=== PATIENT | female | born 1950 | race Caucasian/White ===

== ENCOUNTER → 2020-01-05 | Outpatient (CLI) | payer MEDICARE | END | disposition home or self-care (01) | LOC: RAH 08:49 | PROVIDERS: ATTEND Urology | DX: N20.0 Calculus of kidney (principal) | CPT/HCPCS: 74018 ==

== ENCOUNTER 2020-01-27 15:34 | Observation (INO) | payer MEDICARE ==
[~2020-01-27] VITALS: Ht 167.6 cm; Wt 81.2 kg
[2020-01-27] MEDS ORDERED: MORPHINE SULFATE 4 MG/1ML SYG ONE (18:18)
[2020-01-27 20:59] LABS: BASOPHILS % (AUTO) 0.6 % (0.0-5.0); EOSINOPHILS % (AUTO) 1.2 % (0.0-8.0); HEMATOCRIT 38.6 % (36-48); LYMPHOCYTES % (AUTO) 29.5 % (21.0-51.0); MEAN CORPUSCULAR HEMOGLOBIN 29.4 pg (27.0-33.0); MEAN CORPUSCULAR HGB CONC 33.2 g/dL (32.0-36.0); MEAN CORPUSCULAR VOLUME 88.5 fL (79-99); MONOCYTES % (AUTO) 6.3 % (3.0-13.0); NEUTROPHILS % (AUTO) 61.9 % (40.0-77.0); PLATELET COUNT (AUTO) 267 K/uL (130-400); RED BLOOD CELL COUNT(AUTO) 4.36 MIL/uL (4.00-5.50); RED CELL DISTRIBUTION WIDTH 12.2 % (11.0-15.5); WHITE BLOOD COUNT (AUTO) 10.7 K/uL (4.8-10.8)
[2020-01-27 21:05] LABS: CREATININE 0.7 mg/dL (0.5-1.5); POTASSIUM 5.3 mmol/L (3.5-5.1)
[2020-01-27 21:08] LABS: INR 0.97 (0.85-1.15); PARTIAL THROMBOPLASTIN TIME 27.9 SEC (26.3-35.5); PROTHROMBIN TIME 10.5 SEC (9.6-11.6)
[2020-01-27 21:09] LABS: ALBUMIN 4.1 g/dL (3.5-5.0); BILIRUBIN,TOTAL 0.4 mg/dL (0.2-1.0); TOTAL PROTEIN, SERUM 7.8 g/dL (6.0-8.3)
[2020-01-27] MEDS ORDERED: MORPHINE SULFATE 2 MG/ML 1ML SYG ONE (21:46)
[2020-01-27] MEDS ORDERED: ONDANSETRON HCL 4 MG/2 ML VIAL ONE (21:46)
[2020-01-27] MEDS ORDERED: HYDROCODONE/ACETAMINOPHEN 5/325 MG TAB ONE (21:46)
[2020-01-27 22:20] VITALS: BP 107/63
[2020-01-27] MEDS ORDERED: ACETAMINOPHEN 325 MG TAB PO PRN (23:30)
[2020-01-27] MEDS ORDERED: HYDROCODONE/ACETAMINOPHEN 5/325 MG TAB PO PRN (23:30)
[2020-01-27] MEDS ORDERED: SODIUM CHLORIDE 0.9% 1000ML 1,000 ML IV SCH (23:45)
[2020-01-27] MEDS ORDERED: MORPHINE SULFATE 2 MG/ML 1ML SYG IVP PRN (23:45)
[2020-01-27] MEDS ORDERED: ONDANSETRON HCL 4 MG/2 ML VIAL IVP PRN (23:45)
[2020-01-28 04:00] VITALS: BP 97/55
[2020-01-28 05:04] LABS: HEMATOCRIT 36.6 % (36-48); MEAN CORPUSCULAR HEMOGLOBIN 29.3 pg (27.0-33.0); MEAN CORPUSCULAR HGB CONC 32.5 g/dL (32.0-36.0); MEAN CORPUSCULAR VOLUME 90.1 fL (79-99); RED BLOOD CELL COUNT(AUTO) 4.06 MIL/uL (4.00-5.50); RED CELL DISTRIBUTION WIDTH 12.2 % (11.0-15.5); WHITE BLOOD COUNT (AUTO) 9.2 K/uL (4.8-10.8)
[2020-01-28 05:18] LABS: INR 0.99 (0.85-1.15); PARTIAL THROMBOPLASTIN TIME 26.3 SEC (26.3-35.5); PROTHROMBIN TIME 10.7 SEC (9.6-11.6)
[2020-01-28 05:21] LABS: CREATININE 0.8 mg/dL (0.5-1.5); POTASSIUM 4.2 mmol/L (3.5-5.1)
[2020-01-28 08:11] VITALS: BP 99/61
[2020-01-28] MEDS ORDERED: FAMOTIDINE 20MG TAB 20 MG TAB PO SCH (09:00)
[2020-01-28] MEDS ORDERED: METF-444 PO (09:39)
[2020-01-28] MEDS ORDERED: CETI10TA86 PO (09:39)
[2020-01-28] MEDS ORDERED: DULO20CA18 PO (09:39)
[2020-01-28] MEDS ORDERED: ROPI0.257 PO (09:39)
[2020-01-28] MEDS ORDERED: DULA1.5P SQ (09:39)
[2020-01-28 10:56] VITALS: BP 105/54
--- NOTE | 2020-01-28 11:43 | NUR ---
DR DERAS VISITED WITH PATIENT. HE INFORMED PT THAT HER FX DOES NOT REQUIRE AN OPERATION AND THE SHE MAY GO HOME. FOLLOW UP WITH HIM IF SHE WANTS. DVT PROPHYLAXIS IS UP TO BENCHMARK TO DECIDE.
--- NOTE | 2020-01-28 14:37 | NUR ---
CALL TO [facility]. REQUESTING PT EVAL PRIOR TO DISCHARGE- PT REPORTS HAS WKR AND CRUTCHES AT HOME- EXPLAINED W NEED TO SEE WHAT WEIGHT BEARING TOLERATED MEANS FOR PT- HOW MUCH WILL SEH TOLERATE? AND CUTCH WALKING FOR SAFETY EXPPLAINED TO JESUSITA CM HAS NOT DONE [employer] YET SO ENED TO ENSURE THAT PT HAS SUPPORT IF MOBILITY IS NOW FURTHER IMPAIRED. ORDER RECD FOR PT TO EVAL// TREAT. DISCHARGE PLANNED FOR AFTER PT EVAL
--- NOTE | 2020-01-28 15:47 | NUR ---
D/C PLAN CM spoke to pt regarding d/c planning. Pt is [place] and lives with spouse. 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 Pt has a cane and she is able to borrow a walker if needed. States fall was accidental. Pavement was wet and slipped. Denies having a hx of falls. Reports pain is controlled and feels safe to return home. Pt aware she is pending PT eval prior to discharge home. CM updated nursing. No needs verbalized or identified. CM to follow up. Addendum: 01/28/20 at 1549 by SKYE ZUNIGA Amended: Links added.
[2020-01-28 16:17] VITALS: BP 93/61
[2020-01-28] MEDS ORDERED: ROPINIROLE HCL 0.25 MG TABLET PO SCH (21:00)
[2020-01-30] MEDS ORDERED: **HM** DULOXETINE 20MG PO SCH (09:00)
== END 2020-01-28 18:30 | disposition home or self-care (01) ==
LOC: EDH 15:34 → EDHIP 21:36 → INTOOBSV 21:36 → 3DH 21:55
PROVIDERS: ADMIT Internal Medicine Critical Care Medicine; ATTEND Internal Medicine Critical Care Medicine
DX: S72.114A Nondisplaced fracture of greater trochanter of right femur, initial encounter for closed fracture (principal); E11.9 Type 2 diabetes mellitus without complications; M79.7 Fibromyalgia; Z88.0 Allergy status to penicillin; Z88.2 Allergy status to sulfonamides; W01.0XXA Fall on same level from slipping, tripping and stumbling without subsequent striking against object, initial encounter; Y93.89 Activity, other specified; Y92.89 Other specified places as the place of occurrence of the external cause; Y99.8 Other external cause status
CPT/HCPCS: 36415 ×2; 73502; 73700; 80048; 80053; 85025; 85027; 85610 ×2; 85730 ×2; 93005; 96374; 97116; 97161; 99285; G0378 ×4; G8978; G8979; G8980; G8981; G8982; G8983; J2270; J2405